=== PATIENT | female | born 1995 | race Caucasian/White ===

== ENCOUNTER 2022-08-13 15:47 | Emergency (ER) | payer BC, SELFPAY ==
--- NOTE | ~2022-08-13 | US_ITS ---
EXAMINATION: US PELVIS, LIMITED/FOLLOW UP CLINICAL INFORMATION: Right lower quadrant pain COMPARISON: None available. TECHNIQUE: Transabdominal ultrasound pelvis is performed. Patient declined transvaginal ultrasound. FINDINGS: On transabdominal ultrasound the uterus is anteverted and anteflexed measuring 7.8 x 2.7 x 5.0 cm. Endometrial thickness is 0.5 cm. No focal lesion seen. The right ovary measures 4.0 x 3.0 x 3.6 cm and volume 23.8 mL. There is anechoic cyst measuring 2.9 x 2.8 x 2.6 cm. Normal arterial and venous flow seen on Doppler exam. The left ovary measures 2.0 x 1.8 x 1.4 cm and volume 2.5 mL. It appears unremarkable. Normal arterial and venous flow seen on Doppler exam There is no free fluid in the cul-de-sac. US/US pelvic ovarian doppler IMPRESSION: Unremarkable uterus. Right ovarian cyst. Otherwise both ovaries have normal arterial and venous flow on Doppler exam. No free fluid in the cul-de-sac.
--- NOTE | ~2022-08-13 | CT_ITS ---
EXAMINATION: CT ABDOMEN AND PELVIS WITH CONTRAST CLINICAL INFORMATION: Pain. Evaluate for appendicitis. COMPARISON: None available. TECHNIQUE: Multidetector volumetric images were obtained from the superior aspect of the liver through the pubic symphysis following administration 85 mL of Omnipaque 350 intravenous contrast. Sagittal and coronal reformatted images were obtained on the technologist's workstation. Oral contrast: No This CT examination was performed using dose optimization techniques as appropriate, variously including the following: *Automated exposure control *Adjustment of mA and/or kV according to patient size (this includes techniques or standardized protocols for targeted exams where dose is matched to indication/reason for exam; i.e. extremities or head) *Use of iterative reconstruction technique DLP: 387 mGy-cm FINDINGS: LUNG BASES: No focal consolidation or pleural effusion. LIVER, GALLBLADDER, AND BILIARY TREE: The liver is normal in size, shape, and attenuation. No focal hepatic lesion or biliary ductal dilatation is present. The gallbladder is unremarkable with no evidence of radiopaque gallstones, gallbladder wall thickening, or obvious pericholecystic inflammatory changes. PANCREAS: Unremarkable. SPLEEN: Unremarkable. ADRENAL GLANDS: Unremarkable. KIDNEYS AND URETERS: The kidneys are normal in size, shape, and attenuation. No hydronephrosis, hydroureter, or calculi seen. No perinephric stranding. BLADDER: Unremarkable. GASTROINTESTINAL TRACT: The stomach and the small bowel are nondilated. The appendix is not confidentially identified, though there are no significant inflammatory changes around the cecal base or right lower quadrant suggesting indirect evidence of acute appendicitis. Moderate degree of stool burden in the cecum and ascending colon. No significant pericolonic inflammatory changes. No evidence of bowel obstruction. ABDOMINAL WALL: No significant hernia is appreciated. LYMPH NODES: No lymphadenopathy. VASCULAR: Unremarkable. PELVIC VISCERA: There is a 3.5 cm water density cyst in the right ovary. Ovaries are symmetrically positioned in the pelvis. Trace amount of free fluid is likely physiologic. OSSEOUS STRUCTURES: No acute or aggressive appearing osseous findings. CT/CT abdomen pelvis w IV con IMPRESSION: 1. The appendix is not confidentially identified, though there are no significant inflammatory changes around the cecal base or right lower quadrant suggesting indirect evidence of acute appendicitis. A short-term repeat imaging with oral contrast could be obtained for better delineation of the bowel anatomy as clinically indicated. 2. Moderate degree of stool burden in the cecum and ascending colon suggesting constipation. 3. A 3.5 cm water density cyst in the right ovary is almost benign and for which no imaging follow-up is recommended in an asymptomatic patient. If pain is suspected to be related with an ovarian etiology, further characterization with a short-term repeat pelvic ultrasound could be obtained.
--- NOTE | ~2022-08-13 | US_ITS ---
EXAMINATION: US PELVIS, LIMITED/FOLLOW UP CLINICAL INFORMATION: Right lower quadrant pain COMPARISON: None available. TECHNIQUE: Transabdominal ultrasound pelvis is performed. Patient declined transvaginal ultrasound. FINDINGS: On transabdominal ultrasound the uterus is anteverted and anteflexed measuring 7.8 x 2.7 x 5.0 cm. Endometrial thickness is 0.5 cm. No focal lesion seen. The right ovary measures 4.0 x 3.0 x 3.6 cm and volume 23.8 mL. There is anechoic cyst measuring 2.9 x 2.8 x 2.6 cm. Normal arterial and venous flow seen on Doppler exam. The left ovary measures 2.0 x 1.8 x 1.4 cm and volume 2.5 mL. It appears unremarkable. Normal arterial and venous flow seen on Doppler exam There is no free fluid in the cul-de-sac. US/US pelvic limited IMPRESSION: Unremarkable uterus. Right ovarian cyst. Otherwise both ovaries have normal arterial and venous flow on Doppler exam. No free fluid in the cul-de-sac.
--- NOTE | 2022-08-13 15:54 | ED_ITS ---
HPI - General Adult General Chief complaint: Abdominal Pain Stated complaint: refereed Time Seen by Provider: 08/13/22 16:44 Source: patient Mode of arrival: ambulatory Limitations: no limitations History of Present Illness HPI narrative: Patient comes to the emergency room complaining of right lower quadrant pain since this morning. Initially, patient went to urgent care, patient had 1 positive test in 1-urine test. Patient was sent to the emergency room for further evaluation. Patient denies nausea vomiting diarrhea. Patient states that sometimes when she has lower quadrant pain, she usually has a UTI. Patient denies hematuria or dysuria. Related Data Allergies Allergy/AdvReac Type Severity Reaction Status Date / Time No Known Allergies Allergy Verified 08/13/22 15:55 Review of Systems Review of Systems: Constitutional : No Weight loss, No Fever, No Chills, No Night Sweats, No Fatigue, No Malaise ENT/Mouth : No Hearing loss, No Ear Pain, No Nasal Congestion, No Sinus Pain, No Hoarseness, No sore throat, No Rhinorrhea, No Swallowing Difficulty Eyes: No Eye Pain, No Swelling, No Redness, No Foreign Body, No Discharge, No Vision Changes Cardiovascular : No Chest Pain, No SOB, No Dyspnea on Exertion, No Orthopnea, No Edema, No Palpitations Respiratory : No Cough, No Sputum, No Wheezing, No Smoke Exposure, No Dyspnea Gastrointestinal : No Nausea, No Vomiting, No Diarrhea, No Constipation, complaining of right lower quadrant pain No Hematochezia, No Melena Genitourinary : no irregular bleeding, No Dysuria, No Urinary Frequency, No Hematuria, No Urinary Incontinence, No Urgency, No Flank Pain, No Urinary Flow Changes, No Hesitancy Musculoskeletal : No joint pain, No Myalgias, No Joint Swelling Skin : No Skin Lesions, No rash Neuro : No Weakness, No Numbness, No Paresthesias, No Loss of Consciousness, No Dizziness, No Headache Psych : No Anxiety/Panic, No Depression, No SI/HI/AH/VH, No Social Issues, Heme/Lymph: No Bruising, No Bleeding,No Lymphadenopathy Endocrine : No Polyuria, No Polydipsia, No Temperature Intolerance PMFSH Social History Social History Smoked in Last 30 Days: No Advance Directives: No Advance Directives Information Provided: No Physical Exam ED Vital Signs: Vital Signs - 24 hr 08/13/22 15:55 08/13/22 17:17 08/13/22 19:38 Temperature 98.3 F 98.7 F 98.6 F Pulse Rate 129 H 86 100 Respiratory Rate 18 16 16 Blood Pressure 178/106 H 138/84 138/79 Pulse Oximetry 100 98 98 Oxygen Delivery Method Room Air Room Air Room Air BMI result Body Mass Index 21.8 Const Other: Appearance: Alert. Oriented X3. No acute distress. Eyes: Pupils equal, round and reactive to light. ENT: Pharynx normal. Neck: Normal inspection. Neck supple. No lymph nodes noted. No crepitus CVS: Normal heart rate and rhythm. Pulses normal. Normal S1 and S2 Respiratory: No respiratory distress. Breath sounds normal. No Wheezing. No rales Abdomen: Soft , very mild discomfort to deep palpation in the right lower quadrant, no rebound, no guarding, No rigidity. No distention. Not an acute abdomen Skin: Skin warm and dry. Normal skin color. Normal skin turgor. Extremities: No lower extremity edema. No Lacerations. No Rash Neuro: Oriented X 3. No motor deficit. No sensory deficit. Moving all extremities. No slurred speech. CN 2 through 12 grossly intact Psych: calm, cooperative, normal affect Course Course Course Narrative: This is an RME: Additional HPI, ROS, PE not included below will be deferred to primary provider. Patient is a 26 year old female with no significant history presenting with right lower quadrant pain. She was seen by urgent care today for this pain and reports that there she had one positive test and one negative test. Last period 10 days ago. Currently on control. Presenting for workup of abdominal pain and repeat urine . PE- No tenderness to abdominal palpation Plan- labs, urine , imaging Medications Administered Discontinued Medications Generic Name Dose Route Start Last Admin Trade Name Freq PRN Reason Stop Dose Admin Iohexol 100 ml 08/13/22 18:18 08/13/22 18:19 Iohexol 350 Mg/Ml 100 Ml Infus..Btl IV 08/13/22 18:19 85 ml ONCE ONE Administration Medical Decision Making Medical Decision Making MDM Narrative: -patient's blood HCG test negative for . -ovarian Doppler ultrasound negative for torsion. -will obtain a CT scan to rule out appendicitis. Patient's white blood cell count is negative, physical exam does not suggest acute appendicitis. -the appendix cannot be visualized on CT scan. However, there is no surrounding inflammation that would indicate appendicitis. Physical exam and were blood cell counts are not suggestive of appendicitis. Results discussed with the patient. Patient overall feeling better. Lab Data MDM Lab Attestation statement: I reviewed the patient's lab results. 08/13/22 16:04 08/13/22 16:04 Labs: Lab Results 08/13/22 08/13/22 08/13/22 Range/Units 16:04 16:04 16:04 WBC 7.9 (4.8-10.8) X10*3/uL RBC 4.40 (4.20-5.50) X10*6/uL Hgb 13.0 (12.0-16.0) g/dl Hct 38.1 (37.0-47.0) % MCV 86.6 (80.0-98.0) fL MCH 29.5 (27.0-33.0) pg MCHC 34.1 (31.0-35.0) g/dl RDW 12.1 (11.0-16.0) % Plt Count 258 (160-400) X10*3/uL MPV 9.2 L (9.4-12.3) fL Immature Gran % (Auto) 0.4 (0.0-0.4) % Neut % (Auto) 66.1 (45-73) % Lymph % (Auto) 27.2 (20-40) % [place] % (Auto) 5.7 (2-11) % Eos % (Auto) 0.3 (0-4) % Baso % (Auto) 0.3 (0-2) % Lymph # (Auto) 2.2 (1.2-4.9) X10*3/uL [place] # (Auto) 0.5 (0.1-1.2) X10*3/uL Eos # (Auto) 0.0 (0.0-0.4) X10*3/uL Baso # (Auto) 0.0 (0.0-0.2) X10*3/uL Abs Immat Gran (auto) 0.03 (0.00-0.03) X10*3/uL Absolute Neuts (auto) 5.3 (2.0-8.3) x10*3/uL Absolute Nucleated RBC 0.000 (0.0-0.012) X10*3/uL Nucleated RBC % (auto) 0.0 (0.0-0.2) /100WBC Sodium 141 (135-145) mmol/L Potassium 3.9 (3.3-5.1) mmol/L Chloride 107 (96-108) mmol/L Carbon Dioxide 20 L (22-29) mmol/L Anion Gap 18 (12-20) BUN 10 (9-16) mg/dL Creatinine 0.79 (0.5-1.4) mg/dL Estim Creat Clear Calc 100.1 Estimated GFR > 60 Random Glucose 98 (60-115) mg/dL Calcium 10.5 H (8.4-10.2) mg/dL Total Bilirubin 1.7 H (0.0-1.0) mg/dL AST 25 (5-31) U/L ALT 21 (0-31) U/L Alkaline Phosphatase 57 (39-117) U/L Total Protein 7.9 (6.5-8.0) g/dL Albumin 4.7 (3.5-5.0) g/dL Beta HCG, Quant < 2 mIU/mL Urine Color Urine Appearance Urine pH (5.0-9.0) Ur Specific [place] (1.005-1.025) Urine Protein (Neg-Trace) mg/dL Urine Glucose (UA) (Negative) mg/dL Urine Ketones (Negative) mg/dL Urine Blood (Negative) Urine Nitrite (Negative) Ur Leukocyte Esterase (Negative) Urine RBC (0-2) /HPF Urine WBC (0-5) /HPF Ur Squamous Epith Cells (0-2) /HPF Urine Bacteria (None Seen) Hyaline Casts (0-2) /LPF 08/13/22 Range/Units 17:29 WBC (4.8-10.8) X10*3/uL RBC (4.20-5.50) X10*6/uL Hgb (12.0-16.0) g/dl Hct (37.0-47.0) % MCV (80.0-98.0) fL MCH (27.0-33.0) pg MCHC (31.0-35.0) g/dl RDW (11.0-16.0) % Plt Count (160-400) X10*3/uL MPV (9.4-12.3) fL Immature Gran % (Auto) (0.0-0.4) % Neut % (Auto) (45-73) % Lymph % (Auto) (20-40) % [place] % (Auto) (2-11) % Eos % (Auto) (0-4) % Baso % (Auto) (0-2) % Lymph # (Auto) (1.2-4.9) X10*3/uL [place] # (Auto) (0.1-1.2) X10*3/uL Eos # (Auto) (0.0-0.4) X10*3/uL Baso # (Auto) (0.0-0.2) X10*3/uL Abs Immat Gran (auto) (0.00-0.03) X10*3/uL Absolute Neuts (auto) (2.0-8.3) x10*3/uL Absolute Nucleated RBC (0.0-0.012) X10*3/uL Nucleated RBC % (auto) (0.0-0.2) /100WBC Sodium (135-145) mmol/L Potassium (3.3-5.1) mmol/L Chloride (96-108) mmol/L Carbon Dioxide (22-29) mmol/L Anion Gap (12-20) BUN (9-16) mg/dL Creatinine (0.5-1.4) mg/dL Estim Creat Clear Calc Estimated GFR Random Glucose (60-115) mg/dL Calcium (8.4-10.2) mg/dL Total Bilirubin (0.0-1.0) mg/dL AST (5-31) U/L ALT (0-31) U/L Alkaline Phosphatase (39-117) U/L Total Protein (6.5-8.0) g/dL Albumin (3.5-5.0) g/dL Beta HCG, Quant mIU/mL Urine Color Yellow Urine Appearance Clear Urine pH 5.5 (5.0-9.0) Ur Specific [place] 1.010 (1.005-1.025) Urine Protein Negative (Neg-Trace) mg/dL Urine Glucose (UA) Negative (Negative) mg/dL Urine Ketones Trace (Negative) mg/dL Urine Blood Negative (Negative) Urine Nitrite Negative (Negative) Ur Leukocyte Esterase Trace H (Negative) Urine RBC 0-2 (0-2) /HPF Urine WBC 0-5 (0-5) /HPF Ur Squamous Epith Cells 0-2 (0-2) /HPF Urine Bacteria None Seen (None Seen) Hyaline Casts 0-2 (0-2) /LPF Independent Interpretation I performed an independent interpretation of an: CT Scan Interpretation: FINDINGS: LUNG BASES: No focal consolidation or pleural effusion.? LIVER, GALLBLADDER, AND BILIARY TREE: The liver is normal in size, shape, and attenuation. No focal hepatic lesion or biliary ductal dilatation is present. The gallbladder is unremarkable with no evidence of radiopaque gallstones, gallbladder wall thickening, or obvious pericholecystic inflammatory changes.? PANCREAS: Unremarkable.? SPLEEN: Unremarkable.? ADRENAL GLANDS: Unremarkable.? KIDNEYS AND URETERS: The kidneys are normal in size, shape, and attenuation. No hydronephrosis, hydroureter, or calculi seen. No perinephric stranding. ? BLADDER: Unremarkable.? GASTROINTESTINAL TRACT: The stomach and the small bowel are nondilated. The appendix is not confidentially identified, though there are no significant inflammatory changes around the cecal base or right lower quadrant suggesting indirect evidence of acute appendicitis. Moderate degree of stool burden in the cecum and ascending colon. No significant pericolonic inflammatory changes. No evidence of bowel obstruction.? ABDOMINAL WALL: No significant hernia is appreciated.? LYMPH NODES: No lymphadenopathy. VASCULAR: Unremarkable. PELVIC VISCERA: There is a 3.5 cm water density cyst in the right ovary. Ovaries are symmetrically positioned in the pelvis. Trace amount of free fluid is likely physiologic.? OSSEOUS STRUCTURES: No acute or aggressive appearing osseous findings. CT/CT abdomen pelvis w IV con IMPRESSION: 1.? The appendix is not confidentially identified, though there are no significant inflammatory changes around the cecal base or right lower quadrant suggesting indirect evidence of acute appendicitis. A short-term repeat imaging with oral contrast could be obtained for better delineation of the bowel anatomy as clinically indicated. 2.? Moderate degree of stool burden in the cecum and ascending colon suggesting constipation. 3.? A 3.5 cm water density cyst in the right ovary is almost benign and for which no imaging follow-up is recommended in an asymptomatic patient. If pain is suspected to be related with an ovarian etiology, further characterization with a short-term repeat pelvic ultrasound could be obtained. INDINGS: On transabdominal ultrasound the uterus is anteverted and anteflexed measuring 7.8 x 2.7 x 5.0 cm. Endometrial thickness is 0.5 cm. No focal lesion seen. The right ovary measures 4.0 x 3.0 x 3.6 cm and volume 23.8 mL. There is anechoic cyst measuring 2.9 x 2.8 x 2.6 cm. Normal arterial and venous flow seen on Doppler exam. The left ovary measures 2.0 x 1.8 x 1.4 cm and volume 2.5 mL. It appears unremarkable. Normal arterial and venous flow seen on Doppler exam There is no free fluid in the cul-de-sac.? US/US pelvic limited IMPRESSION: Unremarkable uterus. ? Right ovarian cyst. ? Otherwise both ovaries have normal arterial and venous flow on Doppler exam. ? No free fluid in the cul-de-sac. Discharge Plan Discharge Clinical Impression: Abdominal pain, Negative test Patient Disposition: Home, Self-Care Instructions: Abdominal Pain (ED) Additional Instructions: Please follow-up with your primary care physician tomorrow. If you have any worsening or new symptoms, please return to the emergency room or call 911
[2022-08-13 15:55] VITALS: BP 178/106; PULSE 129; RESP 18; TEMP 36.8; O2SAT 100; BMI 21.8
[2022-08-13 16:07] LABS: MANUAL DIFF FLAG NO
[2022-08-13 16:09] LABS: Basophils Percent Auto 0.3 % (0-2); Eosinophils Percent Auto 0.3 % (0-4); Hematocrit 38.1 % (37.0-47.0); Imm Gran Abs Auto 0.03 X10*3/uL (0.00-0.03); Imm Gran Pct Auto 0.4 % (0.0-0.4); Lymphocytes Absolute Auto 2.2 X10*3/uL (1.2-4.9); Lymphocytes Percent Auto 27.2 % (20-40); Mean Corpuscular HGB Conc 34.1 g/dl (31.0-35.0); Mean Corpuscular Hemoglobin 29.5 pg (27.0-33.0); Mean Corpuscular Volume 86.6 fL (80.0-98.0); Mean Platelet Volume 9.2 fL (9.4-12.3); Monocytes Absolute Auto 0.5 X10*3/uL (0.1-1.2); Monocytes Percent Auto 5.7 % (2-11); Neutrophils Absolute Auto 5.3 x10*3/uL (2.0-8.3); Neutrophils Percent Auto 66.1 % (45-73); Platelet Count 258 X10*3/uL (160-400); Red Cell Distribution Width 12.1 % (11.0-16.0); White Blood Count 7.9 X10*3/uL (4.8-10.8)
[2022-08-13 16:37] LABS: Alanine Aminotransferase 21 U/L (0-31); Albumin Level 4.7 g/dL (3.5-5.0); Alkaline Phosphatase 57 U/L (39-117); Anion Gap 18 (12-20); Aspartate Amino Transferase 25 U/L (5-31); Bilirubin Total 1.7 mg/dL (0.0-1.0); Blood Urea Nitrogen 10 mg/dL (9-16); Calcium 10.5 mg/dL (8.4-10.2); Carbon Dioxide 20 mmol/L (22-29); Chloride 107 mmol/L (96-108); Creatinine Clr Calc Pharmacy 100.1; Estimated Glomerular Filt Rate > 60; Glucose Random 98 mg/dL (60-115); Potassium 3.9 mmol/L (3.3-5.1); Sodium 141 mmol/L (135-145); Total Protein 7.9 g/dL (6.5-8.0)
[2022-08-13 16:50] LABS: HCG Quantitative < 2 mIU/mL
[2022-08-13 17:17] VITALS: BP 138/84; PULSE 86; RESP 16; TEMP 37.1; O2SAT 98
--- NOTE | 2022-08-13 17:29 | MHC.EDTECH ---
PATIENT URINE SAMPLE COLLECTED AND SENT TO LAB .
[2022-08-13 17:35] LABS: Appearance Urine Clear; Color Urine Yellow; Glucose Urine UA Negative (Negative); Leukocyte Esterase Urine Trace (Negative); Nitrite Urine Negative (Negative); PH 5.5 (5.0-9.0); UMIC TRIGGER UACC YES; Urine Blood Negative (Negative); Urine Ketones Trace mg/dL (Negative); Urine Protein Negative (Neg-Trace)
[2022-08-13 17:43] LABS: Bacteria Urine None Seen (None Seen); Hyaline Casts Urine 0-2 /LPF (0-2); RBC Urine 0-2 /HPF (0-2); Squamous Epithelial Cell Urine 0-2 /HPF (0-2); WBC Urine 0-5 /HPF (0-5)
[2022-08-13] MEDS: iohexoL 350 MG/ML 100 ML INFUS..BTL IV (18:19)
--- NOTE | 2022-08-13 19:02 | PC.NURSE ---
assumed care of this pt aox4 no handoff report given pt tearful, pt's cell brought to nurse's station to be charged reassurance provided and pt able to make needs known will f/u with provider
[2022-08-13 19:38] VITALS: BP 138/79; PULSE 100; RESP 16; TEMP 37; O2SAT 98
--- NOTE | 2022-08-13 20:00 | PC.NURSE ---
Discharge instructione given and explained to pt No apparent distress Ambulates safely/independently IV cath tip intact upon removal aox4
== END 2022-08-13 20:00 | disposition home or self-care (01) ==
PROVIDERS: Physician Assistant; Emergency Provider Emergency Medicine; PCP Internal Medicine
DX: R10.31 Right lower quadrant pain (principal); Z32.02 Encounter for pregnancy test, result negative
CPT/HCPCS: 36415; 74177; 76857; 80053; 81001; 84702; 85025; 93975; 99284; Q9967

== ENCOUNTER 2024-02-05 04:01 | Emergency (ER) | payer BC, SELFPAY ==
--- NOTE | ~2024-02-05 | CT_ITS ---
EXAMINATION: CT FACIAL BONES WITHOUT CONTRAST CLINICAL INFORMATION: Status post fall COMPARISON: None available. TECHNIQUE: Multidetector limited CT imaging of the facial bones is acquired without intravenous contrast administration. Postprocessing is performed at a dedicated workstation. Multiplanar reformatted images are submitted. This CT examination was performed using dose optimization techniques as appropriate, variously including the following: *Automated exposure control *Adjustment of mA and/or kV according to patient size (this includes techniques or standardized protocols for targeted exams where dose is matched to indication/reason for exam; i.e. extremities or head) *Use of iterative reconstruction technique DLP: 261 mGy-cm FINDINGS: Minimally displaced left nasal bone fractures are noted with probable nondisplaced fracture of the right nasal bone anteriorly. The nasal septum appears intact however it is mildly deviated to the left. Orbital rims are intact. Zygomatic arches are intact. Mandible and maxillae are intact. Visualized osseous calvarium is intact. Right mastoid air cell, bilateral middle ear cavities and visualized left mastoid air cells are well-aerated. Frontal sinuses, maxillary sinuses and ethmoid air cells are clear. Left-sided sphenoid sinuses clear. There is a polypoid low-density opacity along the right lateral wall of the right-sided sphenoid sinus measuring 1.5 x 0.5 cm, most probably representing a mucous retention cyst. The globes are intact. Retrobulbar fat is clear. No significant facial soft tissue hematoma is appreciated. Temporomandibular joint alignments are maintained. Limited evaluation of the visualized brain parenchyma is unremarkable. Atlantoaxial and atlantooccipital alignments are maintained. Straightening of the visualized cervical spine which could be related to patient positioning or muscle spasm. CT/CT facial bones wo IV con IMPRESSION: Minimally displaced left and nondisplaced right nasal bone fractures. No additional acute fractures of the facial bones are seen. Electronically signed by: Kandy Junior MD 02/05/2024 07:58 AM BARBARA DIAZ
[2024-02-05 04:08] VITALS: BP 116/68; PULSE 70; RESP 16; TEMP 36.4; O2SAT 100; BMI 22.3
--- NOTE | 2024-02-05 05:02 | ED.FALL ---
HPI - Fall General Chief Complaint: Syncope Stated Complaint: abd pain, fainted, broken nose? Time Seen by Provider: 02/05/24 04:48 Source: patient Mode of arrival: ambulatory Limitations: no limitations History of Present Illness ED Provider: HPI Narrative: History of constipation last bowel movement was about a week ago patient took some laxative went to the bathroom to move her bowels felt nauseated when trying vomit passed out and fell forward hitting the nose to the ground history of same in the past denies any chest pain no palpitation patient had abdominal cramping prior to passing out episode had epistaxis at home bruising over the nose Related Data Previous Rx's ?Medication ?Instructions ?Recorded ibuprofen 600 mg tablet 600 mg PO Q6H PRN fever or pain 02/05/24 #30 tabs Allergies Allergy/AdvReac Type Severity Reaction Status Date / Time No Known Allergies Allergy Verified 02/05/24 04:13 Review of Systems Review of Systems: Yes all other systems are reviewed and are negative [facility] Social History Social History Unable to assess alcohol history related to: Unknown Smoked in Last 30 Days: No Use of substances other than those prescribed or required for medical reasons: Unknown Advance Directives: No Advance Directives Information Provided: Yes Do you have a plan to hurt others: No Plan Physical Exam Vital Signs: Vital Signs: Last Vital Signs Temp 97.6 F 02/05/24 06:43 Pulse 78 02/05/24 06:43 Resp 16 02/05/24 06:43 BP 122/79 02/05/24 06:43 Pulse Ox 100 02/05/24 06:43 O2 Del Method Room Air 02/05/24 06:43 BMI result Body Mass Index 22.3 Appearance: Alert. Oriented X3. No acute distress. Eyes: PERRLA, No Nystagmus ENT: Pharynx normal. Oral Mucosa moist swelling and ecchymoses of the nasal bridge no active nosebleed no septal hematoma Neck: Normal inspection. Neck supple. CVS: Normal heart rate and rhythm. Pulses normal. Respiratory: No respiratory distress. Equal air entry bilateral, no wheezing/rales/rhonchi Abdomen: Soft and nontender. Bowel sounds are present, no mass palpable, no CVA tenderness Skin: Skin warm and dry. Normal skin color. Normal skin turgor. Extremities: No lower extremity edema. No calf tenderness Neuro: Oriented X 3. No motor deficit. No sensory deficit.No cerebellar signs , cranial nerves II-XII intact Medical Decision Making Medical Decision Making MDM Narrative: Patient clinically with vasovagal syncope episode which she had before when she tries to vomit or bowel movement. CT scan of the face was done positive for minimal displaced nasal fracture final report is pending Independent Interpretation I performed an independent interpretation of an: CT Scan Interpretation: Nasal bone fracture Discharge Plan Discharge Clinical Impression: Closed fracture nasal bone Patient Disposition: Home, Self-Care Instructions: Nasal Fracture (ED) Additional Instructions: Apply ice pack Ibuprofen for pain Follow with PCP/ENT as needed Prescriptions: New ibuprofen 600 mg tablet 600 mg PO Q6H PRN (Reason: fever or pain) Qty: 30 0RF Interventions: ED Discharge Assessment Last Done: 02/05/24 06:43 Discharge Date/Time: 02/05/24 06:45 Print Language: Macedonian
[2024-02-05 06:38] VITALS: BP 122/79; PULSE 78; RESP 16; O2SAT 100
[2024-02-05 06:43] VITALS: BP 122/79; PULSE 78; RESP 16; TEMP 36.4; O2SAT 100
== END 2024-02-05 06:45 | disposition home or self-care (01) ==
PROVIDERS: Emergency Provider Internal Medicine; PCP Internal Medicine
DX: R55 Syncope and collapse (principal); R11.2 Nausea with vomiting, unspecified; R10.2 Pelvic and perineal pain; R04.0 Epistaxis; R11.0 Nausea
CPT/HCPCS: 70486; 99284